=== PATIENT | female | born 1975 | race American Indian/Alaskan Native ===

== ENCOUNTER 2020-10-18 14:37 | Emergency (ER) | payer OTHER ==
[2020-10-18] MEDS ORDERED: Doxycycline Monohydrate 100 MG Cap PO ONE (14:58)
[2020-10-18] MEDS ORDERED: Lidocaine 1% 30 ML SDV INJECT ONE (14:58)
--- NOTE | 2020-10-18 15:27 | EDM.PDOC ---
Scribed by Pili Hamilton 10/18/20 1527 for Satya Hernández MD ED HPI GENERAL MEDICAL PROBLEM - General Chief Complaint: Skin Complaint Stated Complaint: HURT RING FINGER RIGHT HAND Time Seen by Provider: 10/18/20 14:55 Source of Information: Reports: Patient, RN, RN Notes Reviewed History Limitations: Reports: No Limitations - History of Present Illness INITIAL COMMENTS - FREE TEXT/NARRATIVE: Patient presents to ED by POV with fourth right finger tip with redness and swelling. Symptoms started 2 days ago and have been worsening. No injury to the area. She has reduced range of motion secondary to swelling and pain. Mild erythema traveling up the finger. Denies fever or chills. Onset Date: 10/16/20 Duration: Getting Worse Location: Reports: Upper Extremity, Right Quality: Reports: Ache Severity: Mild Improves with: Reports: None Worsens with: Reports: None Associated Symptoms: Reports: No Other Symptoms Treatments FRANCHISE BROKER: Reports: Other (see below) Other Treatments FRANCHISE BROKER: ointment right ring finger Pain Score (Numeric/FACES): 5 - Related Data Allergies Allergy/AdvReac Type Severity Reaction Status Date / Time Penicillins Allergy Cannot Verified 10/18/20 14:53 Remember Home Meds: Home Meds . [No Known Home Meds] 10/18/20 [History] ED ROS GENERAL - Review of Systems Review Of Systems: Comprehensive ROS is negative, except as noted in HPI. ED EXAM, SKIN/RASH Exam: See Below Exam Limited By: No Limitations General Appearance: Alert, WD/WN, No Apparent Distress Head: Atraumatic, Normocephalic Neck: Normal Inspection Respiratory/Chest: No Respiratory Distress Cardiovascular: Normal Peripheral Pulses, Regular Rate, Rhythm Extremities: Normal Capillary Refill, Increased Warmth, Other (right 4th distal finger with fluctuance and swelling around the cuticle. Mild erythema, acutely tendner. ). No: Joint Swelling Neurological: Alert, Oriented, No Motor/Sensory Deficits ED SKIN PROCEDURES - I&D Site: 4th right finger tip Skin Prep: Chlorhexidine (Hibiciens) Local Anesthesia: Lidocaine: 1% Plain Local Anesthetic Volume: 3cc Area Incised With: 11 Blade Drainage: Purulent, Bloody Probed to Break Up Loculations: No Sterile Dressinx4(s) Complications: No Course - Vital Signs Last Recorded V/S: Last Vital Signs Temp 98.4 F 01/02/21 14:47 Pulse 85 10/18/20 14:47 Resp 20 10/18/20 14:47 BP 116/74 10/18/20 14:47 Pulse Ox 100 10/18/20 14:47 - Orders/Labs/Meds Meds: Medications Discontinued Medications Generic Name Dose Route Start Last Admin Trade Name Molly PRN Reason Stop Dose Admin Doxycycline Monohydrate 100 mg 10/18/20 14:58 10/18/20 15:07 Doxycycline Monohydrate PO 10/18/20 14:59 100 mg ONETIME ONE Administration Lidocaine HCl 30 ml 10/18/20 14:58 10/18/20 15:08 Xylocaine-Mpf 1% INJECT 10/18/20 14:59 4 ml ONETIME ONE Administration - Re-Assessments/Exams Free Text/Narrative Re-Assessment/Exam: 10/18/20 15:25 I saw and evaluated the patient. Discussed with resident and agree with residents findings and plan as documented in the residents note. Resident does not have [employer] access. Departure - Departure Time of Disposition: 15:18 Disposition: Home, Self-Care 01 Condition: Good Clinical Impression: Paronychia - Discharge Information *PRESCRIPTION DRUG MONITORING PROGRAM REVIEWED*: Not Applicable *COPY OF PRESCRIPTION DRUG MONITORING REPORT IN PATIENT KIRSTIN: Not Applicable Instructions: Paronychia, [id number] Forms: ED Department Discharge Additional Instructions: RX: Doxycycline 100mg. Wash with warm soapy water 3 times a day. Ibuprofen and Tylenol as needed for pain. Return if worsening signs of infection. Sepsis Event Note (ED) - Evaluation Sepsis Screening Result: No Definite Risk - Focused Exam Vital Signs: Vital Signs Temp Pulse Resp BP Pulse Ox 10/18/20 14:47 98.4 F 85 20 116/74 100 I have read and agree with the documentation that has been completed regarding this visit. By signing this record, I attest that the documentation was completed in my physical presence and is an accurate record of the encounter.
== END 2020-10-18 15:27 | disposition home or self-care (01) ==
LOC: DL.ED 14:37
DX: L03.011 Cellulitis of right finger (principal); Z88.0 Allergy status to penicillin
CPT/HCPCS: 10060; 99283; A9270; J2001

== ENCOUNTER 2020-12-08 08:11 | Emergency (ER) | payer OTHER ==
--- NOTE | 2020-12-08 09:02 | EDM.PDOC ---
<Didier Hanson - Last Filed: 12/08/20 08:57> ED HPI GENERAL MEDICAL PROBLEM - General Chief Complaint: Upper Extremity Injury/Pain Stated Complaint: INFECTED FINGER Time Seen by Provider: 12/08/20 08:30 Source of Information: Reports: Patient History Limitations: Reports: No Limitations - History of Present Illness INITIAL COMMENTS - FREE TEXT/NARRATIVE: 45 y/o F c/o pain and infection of the Left thumb. Pt states she noticed she had an ingrown thumb nail last week and several days ago she developed swelling and pus under the skin. Pain is 8/10 constant and worse with activity. No recent trauma to the area. Denies fever, cough, chills, drugs, etoh, . Onset: Gradual Duration: Week(s): Location: Reports: Lower Extremity, Left Quality: Reports: Ache, Throbbing Improves with: Reports: None Worsens with: Reports: Movement Associated Symptoms: Reports: No Other Symptoms Left Hand Pain Score (Numeric/FACES): 10 - Related Data Allergies Allergy/AdvReac Type Severity Reaction Status Date / Time Penicillins Allergy Cannot Verified 12/08/20 08:38 Remember Home Meds: Home Meds . [No Known Home Meds] 10/18/20 [History] Past Medical History - Past Health History Medical/Surgical History: Denies Medical/Surgical History Social & Family History - Tobacco Use Tobacco Use Status *Q: Current Every Day Tobacco User Years of Tobacco use: 20 Packs/Tins Daily: 1 - Caffeine Use Caffeine Use: Reports: Soda - Recreational Drug Use Recreational Drug Use: No Review of Systems - Review of Systems Review Of Systems: Comprehensive ROS is negative, except as noted in HPI. ED EXAM, GENERAL - Physical Exam Exam: See Below General Appearance: Alert, No Apparent Distress Throat/Mouth: Normal Inspection, Normal Lips, Normal Teeth, Normal Gums, Normal Oropharynx, Normal Voice, No Airway Compromise Head: Atraumatic, Normocephalic Neck: Normal Inspection, Supple, Non-Tender, Full Range of Motion Respiratory/Chest: No Respiratory Distress, Lungs Clear, Normal Breath Sounds, No Accessory Muscle Use, Chest Non-Tender Cardiovascular: Normal Peripheral Pulses Peripheral Pulses: 2+: Radial (L), Radial (R) Extremities: Other (Left first digit swelling and exudate present to the lateral doral.) Skin Exam: Warm, Dry, Intact, Normal Color, No Rash, Other (except for previously mentioned infection) ED TRAUMA EXTREMITY PROCEDURES - I&D Skin Prep: Providone-Iodine (Betadine) Area Incised With: Needle Drainage: Purulent Probed to Break Up Loculations: No Packed With: None Complications: No Progress/Comments: Left first digit I and D using 18g needle on the lateral doral aspect of digit. Purulent discharge noted. Digit soaked in hydrogen peroxide to clean wound. Departure - Departure Time of Disposition: 09:06 Disposition: Home, Self-Care 01 Condition: Good Clinical Impression: Felon of finger of left hand - Discharge Information *PRESCRIPTION DRUG MONITORING PROGRAM REVIEWED*: Not Applicable *COPY OF PRESCRIPTION DRUG MONITORING REPORT IN PATIENT KIRSTIN: Not Applicable Instructions: Cellulitis, Adult, [id number] Forms: ED Department Discharge Additional Instructions: Keep wound clean and covered. Follow up with your primary care facility in 10 days to have wound examined and discuss treatment for ingrown thumbnail. If any new concerns or symptoms develop contact your primary care facility or return to the emergency department. Sepsis Event Note (ED) - Evaluation Sepsis Screening Result: No Definite Risk <Cosmo Quijano - Last Filed: 12/08/20 09:26> ED EXAM, GENERAL - Physical Exam Exam Limited By: No Limitations Course - Vital Signs Last Recorded V/S: Last Vital Signs Temp 36.6 C 12/08/20 08:35 Pulse 92 12/08/20 08:35 Resp 14 12/08/20 08:35 BP 146/87 H 12/08/20 08:35 Pulse Ox 92 L 12/08/20 08:35 - Orders/Labs/Meds Orders: Active Orders 24 hr Category Date Time Status CULTURE WOUND [RM] Stat Lab 12/08/20 08:51 Ordered - Re-Assessments/Exams Free Text/Narrative Re-Assessment/Exam: 12/08/20 09:10 This patient was assessed with the PA student along with all records reviewed. I agree with the patient's assessment, treatment and plan. Sepsis Event Note (ED) - Focused Exam Vital Signs: Vital Signs Temp Pulse Resp BP Pulse Ox 12/08/20 08:35 36.6 C 92 14 146/87 H 92 L - My Orders Last 24 Hours: My Active Orders 12/08/20 08:51 CULTURE WOUND [RM] Stat - Assessment/Plan Last 24 Hours: My Active Orders 12/08/20 08:51 CULTURE WOUND [RM] Stat
== END 2020-12-08 09:26 | disposition home or self-care (01) ==
LOC: DL.ED 08:11
DX: L03.012 Cellulitis of left finger (principal); Z72.0 Tobacco use; Z88.0 Allergy status to penicillin
CPT/HCPCS: 10160; 87070; 87077; 87186; 99282-25; 99283

== ENCOUNTER 2021-12-27 13:31 | Emergency (ER) | payer OTHER ==
[2021-12-27] MEDS ORDERED: Sulfamethoxazole/Trimethoprim 800-160 MG Tab PO ONE (15:17)
[2021-12-27] MEDS ORDERED: Ibuprofen 600 MG Tab PO ONE (15:22)
== END 2021-12-27 15:46 | disposition home or self-care (01) ==
LOC: DL.ED 13:31
DX: L03.313 Cellulitis of chest wall (principal); S20.312A Abrasion of left front wall of thorax, initial encounter; Z88.0 Allergy status to penicillin; Z72.0 Tobacco use
CPT/HCPCS: 99283; A9270-GY

== ENCOUNTER 2024-06-24 17:41 | Emergency (ER) | payer OTHER ==
[2024-06-24 19:07] LABS: BASOPHILS PERCENT AUTO 0.1 % (0.0-1.0); EOSINOPHILS PERCENT AUTO 1.1 % (1.0-3.0); HEMATOCRIT 29.2 % (37.0-47.0); HEMOGLOBIN 9.2 g/dL (12.0-16.0); LYMPHOCYTES PERCENT AUTO 16.7 % (20.5-50.1); MEAN CORPUSCULAR HEMOGLOBIN 33.6 pg (27.0-34.0); MEAN CORPUSCULAR HGB CONC 31.5 g/dL (33.0-35.0); MEAN CORPUSCULAR VOLUME 106.6 fL (80-100); MONOCYTES PERCENT AUTO 5.3 % (2-8); NEUTROPHILS PERCENT AUTO 76.8 % (42.2-75.2); PLATELET COUNT,PLT 283 10^3/uL (150-450); RED BLOOD CELL COUNT 2.74 10^6/uL (4.2-5.4); WHITE BLOOD CELL COUNT,WBC 9.2 10^3/uL (5.0-10.0)
[2024-06-24 19:28] LABS: LACTIC ACID 0.9 mmol/L (0.4-2.0)
[2024-06-24 19:39] LABS: A/G RATIO 0.8; ALANINE AMINOTRANSFERASE,ALT 66 U/L (14-59); ALBUMIN 3.7 g/dL (3.4-5.0); ALKALINE PHOSPHATASE 290 U/L (46-116); ANION GAP 17.1 mEq/L (7-13); ASPARTATE AMNIOTRANSFERASE,AST 48 U/L (15-37); BILIRUBIN TOTAL 0.3 mg/dL (0.2-1.0); BLOOD UREA NITROGEN,BUN 12 mg/dL (7-18); BUN/CREATININE RATIO 12.1 (No establ ref range); CALCIUM 8.7 mg/dL (8.5-10.1); CARBON DIOXIDE,CO2 20 mmol/L (21-32); CHLORIDE,CL 103 mmol/L (98-107); CREATININE 0.99 mg/dL (0.55-1.02); EST CRCL DRUG DOSING (CG) 61.85 mL/min; GLUCOSE RANDOM 128 mg/dL (70-99); HCG QUALITATIVE,SERUM NEGATIVE (NEGATIVE); LIPASE 75 U/L (16-77); POTASSIUM,K 4.1 mmol/L (3.5-5.1); PROTEIN TOTAL,TP 8.3 g/dL (6.4-8.2); SODIUM,NA 136 mmol/L (136-145)
[2024-06-24 19:41] LABS: ESTIMATED GFR 70 mL/min (>=60)
[2024-06-24] MEDS: Ketorolac 30 MG/ML SDV IVPUSH ONE (23:32)
[2024-06-24 23:35] LABS: APPEARANCE,URINE CLEAR (CLEAR); BILIRUBIN,URINE NEGATIVE (NEGATIVE); COLOR,URINE YELLOW (YELLOW); GLUCOSE,URINE NEGATIVE (NEGATIVE); KETONES,URINE NEGATIVE (NEGATIVE); LEUKOCYTE ESTERASE,URINE NEGATIVE (NEGATIVE); NITRITE,URINE NEGATIVE (NEGATIVE); OCCULT BLOOD,URINE NEGATIVE (NEGATIVE); PH,URINE 5.5 (5.0-9.0); PROTEIN,URINE NEGATIVE (NEGATIVE); UROBILINOGEN,URINE 0.2 mg/dL (0.2-1.0)
[2024-06-25] MEDS: Iopamidol 612 MG/ML 100 ML Bottle IVPUSH ONE (00:46)
[2024-06-25] MEDS: Sodium Chloride 0.9% 1,000 ML IV ONE (01:05)
[2024-06-25] MEDS: Ondansetron 4 MG/2 ML SDV IVPUSH ONE (01:22)
[2024-06-25] MEDS: Morphine 2 MG/ML SYRINGE IVPUSH ONE (01:24)
[2024-06-25] MEDS: metroNIDAZOLE/Normal Saline 500 MG in Premix Bag 1 BAG IV ONE (01:27)
[2024-06-25] MEDS: Ciprofloxacin in D5W 400 MG in Premix Bag 1 BAG IV ONE (01:45)
[2024-06-25] MEDS: Dexamethasone 4 MG/ML SDV IVPUSH ONE (01:55)
== END 2024-06-25 02:53 ==
LOC: DL.ED 17:41
DX: J06.9 Acute upper respiratory infection, unspecified (principal); D53.9 Nutritional anemia, unspecified; K62.5 Hemorrhage of anus and rectum; R94.5 Abnormal results of liver function studies; Z88.0 Allergy status to penicillin; F17.210 Nicotine dependence, cigarettes, uncomplicated
CPT/HCPCS: 36415; 71045; 74177; 80053; 81003; 83605; 83690; 84484; 84703; 85025; 86850; 86900; 86901; 87804; 96365; 96368; 96375; 99285-25; J0744; J1836; J1885; J2270; J2405; J7030; Q9967; U0002

== ENCOUNTER 2025-07-03 22:59 | Emergency (ER) | payer OTHER ==
[2025-07-04 00:25] LABS: BASOPHILS PERCENT AUTO 0.1 % (0.0-1.0); EOSINOPHILS PERCENT AUTO 0.6 % (1.0-3.0); LYMPHOCYTES PERCENT AUTO 11.8 % (20.5-50.1); MONOCYTES PERCENT AUTO 8.5 % (2-8); NEUTROPHILS PERCENT AUTO 79.0 % (42.2-75.2); PLATELET COUNT,PLT 214 10^3/uL (150-450); RED BLOOD CELL COUNT 2.41 10^6/uL (4.2-5.4); WHITE BLOOD CELL COUNT,WBC 13.7 10^3/uL (5.0-10.0)
[2025-07-04 00:41] LABS: ALANINE AMINOTRANSFERASE,ALT 29.0 U/L (14-59); ASPARTATE AMNIOTRANSFERASE,AST 31.0 U/L (15-37); BILIRUBIN TOTAL 0.4 mg/dL (0.2-1.0); BLOOD UREA NITROGEN,BUN 12.0 mg/dL (7-18); CARBON DIOXIDE,CO2 22.0 mmol/L (21-32); CHLORIDE,CL 101.0 mmol/L (98-107); CREATININE 0.86 mg/dL (0.55-1.02); EST CRCL DRUG DOSING (CG) 70.42 mL/min; GLUCOSE RANDOM 111.0 mg/dL (70-99); POTASSIUM,K 3.3 mmol/L (3.5-5.1); PROTEIN TOTAL,TP 7.7 g/dL (6.4-8.2); SODIUM,NA 133.0 mmol/L (136-145)
[2025-07-04 00:45] LABS: A/G RATIO 0.75; ESTIMATED GFR 82.0 mL/min (>=60)
[2025-07-04 02:37] LABS: AMPHETAMINES,URINE NEGATIVE (NEGATIVE); BARBITURATES,URINE NEGATIVE (NEGATIVE); MDMA (ECSTASY), URINE NEGATIVE (NEGATIVE); METHAMPHETAMINES,URINE NEGATIVE (NEGATIVE); OPIATES,URINE NEGATIVE (NEGATIVE); OXYCODONE,URINE NEGATIVE (NEGATIVE); PHENCYCLIDINE,URINE NEGATIVE (NEGATIVE); TCA,URINE NEGATIVE (NEGATIVE)
== END 2025-07-04 03:10 | disposition home or self-care (01) ==
LOC: DL.ED 22:59
DX: J06.9 Acute upper respiratory infection, unspecified (principal); Z88.0 Allergy status to penicillin
CPT/HCPCS: 36415; 71045; 80053; 80305; 80307; 84484; 85025; 85379; 87428; 93005; 99285; J7030